=== PATIENT | male | born 1960 | race Caucasian/White ===

== ENCOUNTER 2017-07-23 13:59 | Outpatient (CLI) | payer MEDICARE, MEDICAID ==
[~2017-07-23 13:59] MED LIST: AMITRIPTYLINE100 MG ORAL; ASPIRIN EC325 MG ORAL; BENADRYL50 MG ORAL; CRESTOR10 M2 ORAL; DALIRESP500 MCG PO; INH300 MG ORAL; ISENTRESS400 MG ORAL; LEXIVA700 MG ORAL; LOMOTIL TABLET1 EACH ORAL; LYRICA75 M1 ORAL; NEXIUM40 M1 ORAL; PODIAPN CAPSUL1 EACH PO; PROSCAR5 MG ORAL; SPIRIVA18 MCG INH; ZETIA10 MG ORAL
--- NOTE | 2017-07-23 15:11 | Diagnostic Imaging Report ---
Indication: Osteopenia Technique: Transaxial images of the L1, L2, and L3 vertebral bodies obtained in a Siemens sensation [address] Regions of interest were drawn for both cortical and medullary portions of the bone. Average bone then calculated. Automatic Exposure Control was utilized. Total Dose length Product (DLP): 33.[address] Dose Index Volume (CTDIvol): mGy Findings: The patient's bone mineral density is 120.1 mg Ca-VELASQUEZ/ml. The T score is -2.06 this means that the patient's average bone mineral density is -2.06 standard deviations less than a typical 20-year-old female. The patient's Z score is 0.20. This means that the patient's average bone mineral density is 0.20 standard deviations greater than age-matched controls. Impression: Bone mineral density is 10-25% below that of young normal females. This patient is considered osteopenic by WHO criteria. Insufficiency fracture risk is moderate. The CT scanner at [facility] is accredited by the [employer] and the scans are performed using dose optimization techniques as appropriate to a performed exam including Automatic Exposure control.
== END 2017-07-23 15:59 | disposition home or self-care (01) ==
LOC: CAT 13:59
DX: M81.0 Age-related osteoporosis without current pathological fracture (principal); M85.88 Other specified disorders of bone density and structure, other site
CPT/HCPCS: 77078